=== PATIENT | male | born 2000 | race Hispanic/Latino ===

== ENCOUNTER 2022-11-19 19:21 | Emergency (ER) | payer SELFPAY ==
[2022-11-19 19:30] VITALS: BP 154/91; PULSE 69; RESP 20; TEMP 36.7; O2SAT 100
== END 2022-11-19 23:31 | disposition left against medical advice (07) ==
LOC: ANHED 20:05
DX: J02.9 Acute pharyngitis, unspecified (principal)
CPT/HCPCS: 99199